=== PATIENT | female | born 1990 | race Two or more races ===

== ENCOUNTER 2016-12-17 11:02 | Outpatient (CLI) | payer OTHER ==
[2016-12-17 11:18] VITALS: BP 127/67
[2016-12-17 12:35] VITALS: BP 122/64
[2016-12-17 12:49] LABS: CHLORIDE 105 mEq/L (99-109); POTASSIUM 3.8 mEq/L (3.7-5.4); SODIUM 136 mEq/L (136-147)
[2016-12-17 12:51] LABS: GLUCOSE 105 mg/dL (70-99)
[2016-12-17 12:52] LABS: ANION GAP 13 MEQ/L (2-14)
[2016-12-17 12:53] LABS: TOTAL BILIRUBIN 0.6 mg/dL (0.0-1.0)
[2016-12-17 12:54] LABS: ALKALINE PHOSPHATASE 149 IU/L (3-129)
[2016-12-17 12:55] LABS: GFR ESTIMATE (CALCULATED) > 59 mL/min/
[2016-12-17 12:56] LABS: UREA NITROGEN (BUN) 7 mg/dL (9-23)
[2016-12-17 13:18] LABS: ADD MIUA? YES; BILIRUBIN NEGATIVE; BLOOD NEGATIVE; COLOR DK YELLOW ((YELLOW)); GLUCOSE (STRIP) NEGATIVE; KETONES 80; LEUKOCYTES SMALL; NITRITE NEGATIVE; PROTEIN (STRIP) 30; SPECIFIC GRAVITY 1.027 (1.000-1.030)
[2016-12-17 13:22] LABS: BACTERIA 3+ /HPF; EPITHELIAL CELLS 2+ /HPF; MUCUS 2+ /LPF; RED BLOOD CELLS 0-5 /HPF (0-5); UCUL ADDED? YES; WHITE BLOOD CELLS 20-30 /HPF (0-5)
[2016-12-17 13:44] LABS: AMPHETAMINES QUANT VALUE 0 NG/ML; BARBITUATES QUANT VALUE 0 NG/ML; BENZODIAZEPINES QUANT VALUE 0 NG/ML; BENZODIAZEPINES, URINE SCREEN Negative (200 ng/mL); MARIJUANA QUANT VALUE 0 NG/ML; OPIATES QUANTITATIVE VALUE 0 NG/ML; PHENCYCLIDINE QUANT VALUE 0 NG/ML
[2016-12-17 14:01] LABS: DRSB INTERNAL CONTROL PASS; PROBE CHECK PASS; SPECIMEN PROCESSING CONTROL PASS
[2016-12-17 14:20] LABS: Estimated Average Glucose 111 mg/dL (70-123); HEMOGLOBIN A1c (GLYCOHEMOGLOB) 5.5 % HGB (Below 5.7)
[2016-12-17 14:33] VITALS: BP 103/51
[2016-12-17 18:45] LABS: CANDIDA DNA PROBE NEGATIVE; GARDNERELLA DNA PROBE NEGATIVE; INTERNAL CONTROL VALID? YES
[2016-12-21 14:18] LABS: CHLAMYDIA TRACHOMATIS INVALID; NEISSERIA GONORRHOEAE INVALID
== END 2016-12-17 15:25 | disposition home or self-care (01) ==
LOC: LDRP-OP 11:02 → 2WEST 11:07 → LDRP-OP 02-26 13:28
PROVIDERS: Advanced Practice Midwife; Obstetrics & Gynecology
DX: O47.03 False labor before 37 completed weeks of gestation, third trimester (principal); R11.2 Nausea with vomiting, unspecified; Z3A.34 34 weeks gestation of pregnancy; O34.219 Maternal care for unspecified type scar from previous cesarean delivery
CPT/HCPCS: 59025; 80053; 80306 90; 81003; 82731; 83036; 87081; 87086; 87480; 87491; 87510; 87591; 87653; 87660; G0378; J2405; J7030; J7120

== ENCOUNTER 2017-01-20 04:57 | Inpatient (IN) | payer OTHER ==
[2017-01-20] VITALS (7 sets, daily range): BP systolic 112–124; BP diastolic 53–81
[~2017-01-20] VITALS: Ht 167.6 cm; Wt 100.9 kg
[~2017-01-20 04:57] MED LIST: GLUCOPHAGE1000 MG PO; MICRONASE2.5 MG PO; MTERYTI COMBO1 EACH PO; PROCARDIA20 MG PO; TUMS500 MG PO; VENTOLIN HFA18 GM IH; VITAMIN D-32000 UNI2 PO; ZUPLENZ4 MG PO
[2017-01-20 06:42] LABS: EOSINOPHIL (%) 2.4 % (0-5); EOSINOPHIL COUNT 0.2 K/uL (0-0.3); HEMATOCRIT 28.4 % (36.0-46.0); IMMATURE GRANULOCYTE (%) 0.8 % (0.0-0.7); IMMATURE GRANULOCYTE COUNT 0.1 K/uL; INSTRUMENT ABS NEUTROPHIL CT 7.2 K/uL; LYMPHOCYTE COUNT 1.8 K/uL (1.0-2.8); MCH 29.2 PG (29.0-34.0); MCHC 33.1 G/DL (30.0-36.0); MCV 88.2 FL (83-99); MEAN PLAT.VOLUME 10.8 uM^3 (9.5-12.4); MONOCYTE (%) 4.1 % (3-12); MONOCYTE COUNT 0.4 K/uL (0-0.8); NEUTROPHIL (%) 73.8 % (45-76); NEUTROPHIL COUNT 7.2 K/uL (1.8-6.4); PLATELET COUNT 242 K/uL (156-360); RBC DIS.WIDTH-SD 41.4 % (39-53); RED BLOOD COUNT 3.22 M/uL (3.80-5.20); WHITE BLOOD COUNT 9.7 K/uL (4.1-10.2)
[2017-01-20 06:46] LABS: ANION GAP 9 MEQ/L (2-14); CHLORIDE 106 MEQ/L (99-109); GFR ESTIMATE (CALCULATED) > 59 mL/min/; GLUCOSE 77 mg/dL (70-99); POTASSIUM 3.8 MEQ/L (3.7-5.4); SAMPLE HEMOLYSIS CHECK 0; SAMPLE ICTERIC CHECK 0; SAMPLE LIPEMIA CHECK 0; SODIUM 135 MEQ/L (136-147); UREA NITROGEN (BUN) 7 mg/dL (9-23)
[2017-01-20 09:23] LABS: POINT-OF-CARE METER ID UU13113675
[2017-01-20 12:02] LABS: HEMATOCRIT 26.2 % (36.0-46.0); MCH 28.3 PG (29.0-34.0); MCHC 32.1 G/DL (30.0-36.0); MCV 88.2 FL (83-99); MEAN PLAT.VOLUME 10.5 uM^3 (9.5-12.4); PLATELET COUNT 242 K/uL (156-360); RBC DIS.WIDTH-SD 41.7 % (39-53); RED BLOOD COUNT 2.97 M/uL (3.80-5.20); WHITE BLOOD COUNT 14.6 K/uL (4.1-10.2)
[2017-01-20 13:56] LABS: POINT-OF-CARE METER ID UU13113801
[2017-01-20 18:20] LABS: HEMATOCRIT 24.7 % (36.0-46.0)
[2017-01-20 19:16] LABS: POINT-OF-CARE METER ID UU13113801
[2017-01-21] VITALS (13 sets, daily range): BP systolic 103–126; BP diastolic 50–65
[2017-01-21 07:28] LABS: POINT-OF-CARE METER ID UU13113801
[2017-01-21 08:56] LABS: EOSINOPHIL (%) 1.8 % (0-5); EOSINOPHIL COUNT 0.2 K/uL (0-0.3); HEMATOCRIT 18.5 % (36.0-46.0); IMMATURE GRANULOCYTE COUNT 0.1 K/uL; INSTRUMENT ABS NEUTROPHIL CT 5.4 K/uL; LYMPHOCYTE COUNT 2.1 K/uL (1.0-2.8); MCH 29.9 PG (29.0-34.0); MCHC 34.1 G/DL (30.0-36.0); MCV 87.7 FL (83-99); MEAN PLAT.VOLUME 10.5 uM^3 (9.5-12.4); MONOCYTE COUNT 0.5 K/uL (0-0.8); NEUTROPHIL (%) 65.9 % (45-76); NEUTROPHIL COUNT 5.4 K/uL (1.8-6.4); PLATELET COUNT 242 K/uL (156-360); RBC DIS.WIDTH-CV 13.4 % (11.8-14.6); RBC DIS.WIDTH-SD 42.2 % (39-53); WHITE BLOOD COUNT 8.2 K/uL (4.1-10.2)
[2017-01-21 09:00] LABS: RED BLOOD COUNT 2.11 M/uL (3.80-5.20)
[2017-01-21 10:16] LABS: POINT-OF-CARE METER ID UU13113801
[2017-01-21 14:57] LABS: POINT-OF-CARE METER ID UU13113801
[2017-01-21 19:31] LABS: HEMATOCRIT 21.2 % (36.0-46.0); MCH 28.9 PG (29.0-34.0); MCV 87.6 FL (83-99); MEAN PLAT.VOLUME 10.3 uM^3 (9.5-12.4); PLATELET COUNT 237 K/uL (156-360); RBC DIS.WIDTH-CV 13.3 % (11.8-14.6); RBC DIS.WIDTH-SD 42.2 % (39-53); RED BLOOD COUNT 2.42 M/uL (3.80-5.20); WHITE BLOOD COUNT 7.9 K/uL (4.1-10.2)
[2017-01-21 19:34] LABS: POINT-OF-CARE METER ID UU13113801
[2017-01-22] VITALS (7 sets, daily range): BP systolic 107–129; BP diastolic 65–73
[2017-01-22 06:23] LABS: POINT-OF-CARE METER ID UU13113801
[2017-01-22 07:34] LABS: HEMATOCRIT 22.1 % (36.0-46.0); MCH 29.6 PG (29.0-34.0); MCHC 33.5 G/DL (30.0-36.0); MCV 88.4 FL (83-99); MEAN PLAT.VOLUME 10.4 uM^3 (9.5-12.4); PLATELET COUNT 236 K/uL (156-360); RBC DIS.WIDTH-CV 13.8 % (11.8-14.6); RBC DIS.WIDTH-SD 44.9 % (39-53); WHITE BLOOD COUNT 7.8 K/uL (4.1-10.2)
[2017-01-22 10:14] LABS: POINT-OF-CARE METER ID UU13113801
[2017-01-22 14:47] LABS: POINT-OF-CARE METER ID UU13113801
[2017-01-22 19:33] LABS: POINT-OF-CARE METER ID UU13113801
[2017-01-23 06:16] LABS: EOSINOPHIL (%) 3.1 % (0-5); EOSINOPHIL COUNT 0.2 K/uL (0-0.3); HEMATOCRIT 28.1 % (36.0-46.0); IMMATURE GRANULOCYTE (%) 0.9 % (0.0-0.7); IMMATURE GRANULOCYTE COUNT 0.1 K/uL; INSTRUMENT ABS NEUTROPHIL CT 5.5 K/uL; LYMPHOCYTE COUNT 1.6 K/uL (1.0-2.8); MCH 29.2 PG (29.0-34.0); MCHC 33.1 G/DL (30.0-36.0); MCV 88.1 FL (83-99); MEAN PLAT.VOLUME 9.8 uM^3 (9.5-12.4); MONOCYTE (%) 4.3 % (3-12); MONOCYTE COUNT 0.3 K/uL (0-0.8); NEUTROPHIL (%) 70.7 % (45-76); NEUTROPHIL COUNT 5.5 K/uL (1.8-6.4); PLATELET COUNT 275 K/uL (156-360); RBC DIS.WIDTH-CV 13.8 % (11.8-14.6); RBC DIS.WIDTH-SD 44.2 % (39-53); WHITE BLOOD COUNT 7.7 K/uL (4.1-10.2)
[2017-01-23 06:19] LABS: RED BLOOD COUNT 3.19 M/uL (3.80-5.20)
[2017-01-23 06:41] LABS: POINT-OF-CARE METER ID UU13113801
[2017-01-23 07:13] VITALS: BP 127/66
[2017-01-23 09:56] LABS: POINT-OF-CARE METER ID UU13113801
[2017-01-23 15:19] VITALS: BP 129/68
[2017-01-23 22:36] LABS: POINT-OF-CARE METER ID UU13113692
[2017-01-23 22:36] LABS: POINT-OF-CARE METER ID UU13113692
[2017-01-24 06:46] LABS: POINT-OF-CARE METER ID UU13113801
[2017-01-24 08:00] VITALS: BP 134/74
[2017-01-24 09:48] LABS: POINT-OF-CARE METER ID UU13113801
[2017-01-24] MEDS ORDERED: IBUPROFEN800 MG PO (12:25)
[2017-01-24] MEDS ORDERED: ENDOCET 5-3251 EACH PO (12:25)
[2017-01-24] MEDS ORDERED: METFORMIN HCL500 MG PO (12:25)
[2017-01-24] MEDS ORDERED: FEOSOL325 MG PO (12:32)
== END 2017-01-24 14:35 | disposition home or self-care (01) | DRG 765 ==
LOC: 2WEST 04:57 → 2SOUTH 10:56 → 2WEST 12:01 → 2SOUTH 12:18 → 2WEST 01-24 14:35
PROVIDERS: Obstetrics & Gynecology
PROC: 3E0M05Z Introduction of Adhesion Barrier into Peritoneal Cavity, Open Approach (ICD-10-PCS; principal; 2017-01-20)
PROC: 10D00Z1 Extraction of Products of Conception, Low, Open Approach (ICD-10-PCS; principal; 2017-01-20)
PROC: 0JN80ZZ Release Abdomen Subcutaneous Tissue and Fascia, Open Approach (ICD-10-PCS; principal; 2017-01-20)
PROC: 30233N1 Transfusion of Nonautologous Red Blood Cells into Peripheral Vein, Percutaneous Approach (ICD-10-PCS; 2017-01-20)
DX: O34.211 Maternal care for low transverse scar from previous cesarean delivery (principal); O72.1 Other immediate postpartum hemorrhage; O24.12 Pre-existing type 2 diabetes mellitus, in childbirth; E11.9 Type 2 diabetes mellitus without complications; O90.81 Anemia of the puerperium; D62 Acute posthemorrhagic anemia; O99.62 Diseases of the digestive system complicating childbirth; K66.0 Peritoneal adhesions (postprocedural) (postinfection); O99.214 Obesity complicating childbirth; E66.9 Obesity, unspecified; Z68.35 Body mass index [BMI] 35.0-35.9, adult; Z3A.39 39 weeks gestation of pregnancy; Z37.0 Single live birth; Z79.84 Long term (current) use of oral hypoglycemic drugs; Z87.891 Personal history of nicotine dependence
CPT/HCPCS: 80048; 82948; 85014; 85018; 85025; 85027; 86900; 86901; 86920; J0690; J1100; J1815; J1885; J2210; J2274; J2405; J3010; J7120; P9016